=== PATIENT | male | born 1980 | race Caucasian/White ===

== ENCOUNTER 2021-10-08 16:46 | Emergency (ER) | payer BC, SELFPAY ==
--- NOTE | ~2021-10-08 | XR_ITS ---
EXAMINATION: XR TIBIA AND FIBULA, RIGHT CLINICAL INFORMATION: Cellulitis. Rule out subcutaneous air. COMPARISON: None TECHNIQUE: AP and lateral views of the right tibia and fibula were obtained. FINDINGS: There is significant soft tissue thickening throughout the included right lower extremity but with no obvious subcutaneous air. No acute fracture or malalignment. Multifocal degenerative osteoarthritis. Spurs in the calcaneus noted. XR/XR tibia fibula RT 2V IMPRESSION: Significant soft tissue thickening but no discrete subcutaneous air. If a gangrenous infection is suspected, correlation with cross-sectional imaging could be obtained if clinically deemed appropriate.
--- NOTE | ~2021-10-08 | US_ITS ---
EXAMINATION: US VENOUS ULTRASOUND WITH DOPPLER LOWER EXTREMITY, RIGHT CLINICAL INFORMATION: COMPARISON: None TECHNIQUE: Ultrasound of the deep veins is performed from the hip to the calf with compression sonography and color and pulse Doppler assessment. Spectral analysis with color-flow imaging is performed. FINDINGS: There is normal venous compression and respiratory variation and augmented flow. The visualized common femoral vein, superficial femoral vein, profunda femoral vein, popliteal vein, and the trifurcation region shows no evidence of deep venous thrombosis. There is no significant popliteal fossa cyst. If the patient's symptoms persist, followup ultrasound in 5 days 7 days might be of value to exclude proximal propagation from a non-visualized calf vein. US/US venous duplex LE RT IMPRESSION: No DVT demonstrated in the right lower extremity.
[2021-10-08 19:13] VITALS: BP 177/74; PULSE 89; RESP 22; TEMP 36.6; O2SAT 97; BMI 64.1
[2021-10-08 20:01] LABS: Basophils Percent Auto 0.2 % (0-2); Imm Gran Pct Auto 1.5 % (0.0-0.4); MANUAL DIFF FLAG SCAN; Mean Corpuscular HGB Conc 34.2 g/dl (31.0-36.0); Mean Corpuscular Hemoglobin 29.9 pg (27.0-33.0); PLT CLUMP 1; SCAN SMEAR FLAG 1
[2021-10-08 20:02] LABS: Eosinophils Percent Auto 0.1 % (0-4); Hematocrit 42.1 % (42.0-52.0); Hemoglobin 14.4 g/dl (14.0-18.0); Imm Gran Abs Auto 0.37 X10*3/uL (0.00-0.03); Lymphocytes Absolute Auto 1.4 X10*3/uL (1.2-4.9); Lymphocytes Percent Auto 5.7 % (20-40); Mean Corpuscular Volume 87.3 fL (80.0-98.0); Mean Platelet Volume 10.8 fL (9.4-12.4); Monocytes Absolute Auto 1.3 X10*3/uL (0.1-1.2); Monocytes Percent Auto 5.1 % (2-11); Neutrophils Absolute Auto 21.6 x10*3/uL (2.0-8.3); Neutrophils Percent Auto 87.4 % (45-73); Red Blood Count 4.82 X10*6/uL (4.60-5.80)
[2021-10-08 20:16] LABS: D Dimer High Sensitivity 203 NG/ML
[2021-10-08 20:21] LABS: Alanine Aminotransferase 28 U/L (0-40); Albumin Level 4.1 g/dL (3.5-5.0); Alkaline Phosphatase 77 U/L (39-117); Anion Gap 18 (12-20); Aspartate Amino Transferase 20 U/L (5-37); Bilirubin Total 1.2 mg/dL (0.0-1.0); Blood Urea Nitrogen 14 mg/dL (9-16); Calcium 8.8 mg/dL (8.4-10.2); Carbon Dioxide 23 mmol/L (22-29); Chloride 101 mmol/L (96-108); Creatinine Clr Calc Pharmacy 196.7; Estimated Glomerular Filt Rate > 60; Glucose Random 118 mg/dL (60-115); Potassium 4.4 mmol/L (3.3-5.1); Sodium 138 mmol/L (135-145); Total Protein 7.4 g/dL (6.5-8.0)
[2021-10-08 20:24] LABS: Platelet Count 209 X10*3/uL (160-400); White Blood Count 24.7 X10*3/uL (4.8-10.8)
[2021-10-08 20:25] LABS: SLIDE REVIEW VERIFIED
--- NOTE | 2021-10-08 21:34 | ED.LOWEXIN ---
HPI - Extremity Injury (Lower) General Chief Complaint: Extremity Injury, Lower Stated Complaint: ? blood clot in leg Time Seen by Provider: 10/08/21 21:33 Source: patient Mode of arrival: ambulatory Limitations: no limitations History of Present Illness HPI Narrative: 41-year-old male sent from PCP office for evaluation of her right lower extremities pain. Stated that 2 days ago he slipped in the wrong way twisting his right ankle woke up with throbbing pain in the right leg with fever and chills, declined any insect bite, patient is able to ambulate with limping. Declined any recent travel or any recent prolonged immobilization. Related Data Previous Rx's Medication Instructions Recorded cephalexin 500 mg capsule 500 mg PO Q12H 10 days #20 caps 10/08/21 sulfamethoxazole 800 1 tab PO Q12H #20 tabs 10/08/21 mg-trimethoprim 160 mg tablet (Bactrim DS) Allergies Allergy/AdvReac Type Severity Reaction Status Date / Time No Known Allergies Allergy Verified 10/08/21 19:17 Review of Systems Review of Systems: All other systems are reviewed and are negative Constitutional: Reports as per HPI and Reports no additional constitutional complaints Eyes: Reports as per HPI and Reports no additional eye complaints Reports system reviewed and no additional complaints, except as documented Cardiovascular: Reports as per HPI and Reports no additional cardiovascular complaints Respiratory: Reports as per HPI and Reports no additional respiratory complaints Gastrointestinal: Reports as per HPI and Reports no additional gastrointestinal complaints Genitourinary: Reports no additional female genitourinary complaints Musculoskeletal: Reports no additional musculoskeletal complaints Skin/Breast: Reports system reviewed and no additional complaints, except as docu Psychiatric: Reports no additional psychiatric complaints Endocrine: Reports no additional endocrine complaints Hematologic/Lymphatic: Reports no additional hematologic/lymphatic complaints Allergic/Immunologic: Reports no additional allergic/immunologic complaints Reports system reviewed and no additional complaints, except as documented and Reports Abnormal speech present [facility] Social History Social History Advance Directives: No Advance Directives Information Provided: Yes Physical Exam Vital Signs: Vital Signs: Last Vital Signs Temp 97.8 F 10/08/21 19:13 Pulse 89 10/08/21 19:13 Resp 22 H 10/08/21 19:13 BP 177/74 H 10/08/21 19:13 Pulse Ox 97 10/08/21 19:13 O2 Del Method 10/08/21 19:13 BMI result Body Mass Index 64.1 Vital signs have been reviewed as appeared to be correct. Blood pressure normal. Heart rate normal. Respiration rate normal. Temperature normal. Oxygen saturation normal. Appearance: Alert. Oriented X3. No acute distress. Head: Normal external exam. Normocephalic. Atraumatic. No Harris signs noted. No raccoon eyes noted Eyes: PERRLA. EOMI. Conjunctiva and sclera normal. Eyelids normal. ENT: TM's Normal. Pharynx normal. Uvula midline. Moist mucous membranes. No trismus noted. No drooling noted. No muffled voice noted. Neck: Normal inspection. Neck supple. FROM. No adenopathy. Thyroid Normal. No meningeal signs. No neck mass noted. CVS: Normal heart rate and rhythm. Heart sound normal. No murmurs noted. Pulses normal throughout. Respiratory: No respiratory distress. Painless inspiration. Breath sounds normal. No wheezes/rales/rhonchi noted. Chest nontender. No accessory muscle usage noted or decreased air movement noted. Abdomen: Soft and nontender. Bowel sounds normal in all 4 quadrants. No distention noted. No organomegaly noted. No visible injury noted. Back: No CVA tenderness. Full range of motion noted. Skin: Skin warm and dry. Normal skin color. Normal skin turgor. No rashes/lesions/lacerations noted. Extremities: 15x 8 cm area of redness and hotness with tenderness to touch to the lower right leg, mild calf tenderness. Neuro: Oriented X 3. Cranial nerve exam: II-XII are grossly intact No motor deficit. No sensory deficit. Reflexes normal. Course Course Course Narrative: 41-year-old male presented with right lower extremities uncomplicated cellulitis, patient preferred to start outpatient treatment and avoid hospitalization, patient meet SIRS criteria, patient otherwise hemodynamically stable cellulitis was delineated by a marker and patient was instructed to seek immediate medical attention if it exceeds the maguire, will start the patient on double antibiotic, patient has an appointment with PCP tomorrow. MDM - Extremity Injury (Lower) Lab Data Attestation: I reviewed the patient's lab results. Result diagrams: 10/08/21 19:49 10/08/21 19:49 Labs: Lab Results 10/08/21 10/08/2122 Range/Units 19:49 19:49 19:49 WBC 24.7 H (4.8-10.8) X10*3/uL RBC 4.82 (4.60-5.80) X10*6/uL Hgb 14.4 (14.0-18.0) g/dl Hct 42.1 (42.0-52.0) % MCV 87.3 (80.0-98.0) fL MCH 29.9 (27.0-33.0) pg MCHC 34.2 (31.0-36.0) g/dl RDW 13.0 (11.0-16.0) % Plt Count 209 (160-400) X10*3/uL MPV 10.8 (9.4-12.4) fL Immature Gran % (Auto) 1.5 H (0.0-0.4) % Neut % (Auto) 87.4 H (45-73) % Lymph % (Auto) 5.7 L (20-40) % [place] % (Auto) 5.1 (2-11) % Eos % (Auto) 0.1 (0-4) % Baso % (Auto) 0.2 (0-2) % Lymph # (Auto) 1.4 (1.2-4.9) X10*3/uL [place] # (Auto) 1.3 H (0.1-1.2) X10*3/uL Eos # (Auto) 0.0 (0.0-0.4) X10*3/uL Baso # (Auto) 0.0 (0.0-0.2) X10*3/uL Abs Immat Gran (auto) 0.37 H (0.00-0.03) X10*3/uL Absolute Neuts (auto) 21.6 H (2.0-8.3) x10*3/uL Absolute Nucleated RBC 0.000 (0.0-0.012) X10*3/uL Nucleated RBC % (auto) 0.0 (0.0-0.2) /100WBC Smear Tech's Comments VERIFIED D-Dimer High Sensitivty 203 NG/ML Sodium 138 (135-145) mmol/L Potassium 4.4 (3.3-5.1) mmol/L Chloride 101 (96-108) mmol/L Carbon Dioxide 23 (22-29) mmol/L Anion Gap 18 (12-20) BUN 14 (9-16) mg/dL Creatinine 0.89 (0.5-1.4) mg/dL Estim Creat Clear Calc 196.7 Estimated GFR > 60 Random Glucose 118 H (60-115) mg/dL Calcium 8.8 (8.4-10.2) mg/dL Total Bilirubin 1.2 H (0.0-1.0) mg/dL AST 20 (5-37) U/L ALT 28 (0-40) U/L Alkaline Phosphatase 77 (39-117) U/L Total Protein 7.4 (6.5-8.0) g/dL Albumin 4.1 (3.5-5.0) g/dL Imaging Data Right lower extremities ultrasound: Attestation: I personally reviewed and interpreted this imaging study as follows: Radiologist's impression: No DVT. Right lower extremities x-ray: Attestation: I personally reviewed and interpreted this imaging study as follows: Radiologist's impression: Significant soft tissue thickening but no discrete subcutaneous air. ? If a gangrenous infection is suspected, correlation with cross-sectional imaging could be obtained if clinically deemed appropriate. ? Discharge Plan Discharge Clinical Impression: Cellulitis of leg, right Patient Disposition: Home, Self-Care Instructions: Cellulitis (ED) Additional Instructions: Take the prescribed antibiotic as instructed, keep monitoring the red area if it exceeds the delineated marker please seek immediate medical attention, apply ice to the red tender area. Prescriptions: New cephalexin 500 mg capsule 500 mg PO Q12H 10 Days Qty: 20 0RF sulfamethoxazole-trimethoprim [Bactrim DS] 800-160 mg tablet 1 tab PO Q12H Qty: 20 0RF Referrals: Kathrine Holbrook MD [Primary Care Provider] -
[2021-10-08] MEDS: Sulfamethox/Trimeth 800/160 TABLET 1 TAB PO (21:58)
[2021-10-08] MEDS: cephALEXin 500 MG CAPSULE PO (21:59)
== END 2021-10-08 23:11 | disposition home or self-care (01) ==
PROVIDERS: Emergency Provider Emergency Medicine; PCP Family Medicine
DX: L03.115 Cellulitis of right lower limb (principal); R60.0 Localized edema; Z79.899 Other long term (current) drug therapy
CPT/HCPCS: 36415; 73590; 80053; 85025; 85379; 93971; 99282; 99283

== ENCOUNTER 2024-04-23 17:15 | Emergency (ER) | payer BC, SELFPAY ==
--- NOTE | 2024-04-23 17:45 | ED_ITS ---
HPI - General Adult General Chief complaint: General Medical Stated complaint: high BP 200/106 Time Seen by Provider: 04/23/24 19:52 Source: patient and RN notes reviewed Mode of arrival: ambulatory Limitations: no limitations History of Present Illness ED Provider: Deandra Lyles PA-C [facility] narrative: This is a 39-vahe-kcs-male who presents to the ER with complaints of elevated BP. Reports he was at his bat person (he is on testosterone) to start on ozepemic, and it was found that his BP was elevated. He states that his bat person advised him to call his PCP, and his PCP advised him to come to the ED due to his BP being elevated. BP in triage is 191/93. No headache, dizziness, blurred vision, CP or SOB. Does not have a history of high blood pressure. No other complaints or concerns at this time. MD complaint: Elevated blood pressure reading Relieving factors: none Exacerbating factors: none Associated symptoms: denies other symptoms Treatments prior to arrival: none Related Data Previous Rx's ?Medication ?Instructions ?Recorded cephalexin 500 mg capsule 500 mg PO Q12H 10 days #20 caps 10/08/21 sulfamethoxazole 800 1 tab PO Q12H #20 tabs 10/08/21 mg-trimethoprim 160 mg tablet (Bactrim DS) hydrochlorothiazide 25 mg tablet 25 mg PO DAILY #30 tabs 04/23/24 Allergies Allergy/AdvReac Type Severity Reaction Status Date / Time amoxicillin AdvReac Unknown Verified 04/23/24 17:53 Review of Systems 2 Review of Systems: Yes all other systems are reviewed and are negative Constitutional: Constitutional: Reports as per [facility] Social History Social History Advance Directives: Yes Advance Directives Information Provided: Yes Advance Directives on File: No Physical Exam ED Vital Signs: Vital Signs - 24 hr 04/23/24 17:47 04/23/24 19:41 04/23/24 19:58 Temperature 98.6 F 97.8 F 97.8 F Pulse Rate 70 70 70 Respiratory Rate 20 22 H 22 H Blood Pressure 191/93 H 173/83 H 173/83 H Pulse Oximetry 98 97 97 Oxygen Delivery Method Room Air Room Air Room Air BMI result Body Mass Index 68.0 Const General: cooperative, comfortable and no acute distress Orientation/consciousness: patient oriented x3 Limitations: no limitations HENMT Head: Yes normal to inspection, Yes normocephalic and Yes atraumatic Ears: hearing grossly normal bilaterally General nose exam: Normal external nose present Face and sinus: Yes normal facial exam Mouth: Normal oral and palatal mucosa present, oropharynx normal and moist mucous membranes Throat: Yes posterior oropharynx normal Eyes General: appearance normal, both eyes and all related structures Eyelids: Yes eyelids normal Conjunctivae: conjunctivae normal Sclerae: sclerae normal Pupils: Equal, round and reactive pupils present EOM: EOMs intact bilaterally Neck Neck: Yes normal visual inspection, Yes full ROM and Yes no lymphadenopathy Lymphatic: no lymphadenopathy noted Chest Chest palpation & inspection: normal inspection of the chest Resp Effort & Inspection: normal respiratory effort and able to speak in complete sentences Auscultation: clear to auscultation bilaterally, no crackles, no rales, no rhonchi and no wheezes Cardio Rate: regular rate Rhythm: regular rhythm Heart sounds: S1 normal heart sound present and S2 normal heart sound present GI Inspection: Yes normal to inspection Skin General skin exam: no rashes or lesions noted Trauma: no lacerations or abrasions Wounds: no wounds Neuro General: patient oriented x3 and moves all extremities Cranial nerves: Yes Equal, round and reactive pupils present Extrem General: Yes normal to inspection Right upper extremity: normal to inspection Left upper extremity: normal to inspection Right lower extremity: normal to inspection Left lower extremity: normal to inspection Medical Decision Making Medical Decision Making MDM Narrative: This is a 46-aihl-lnd-male who presents to the ER with complaints of elevated BP. On arrival, patient speaking full sentences under no acute distress. Blood pressure 191/93, all other vital signs within normal limits. He has no chest pain, shortness for breath, blurred vision, double vision. Will obtain basic labs to rule out any evidence of THU. Differential diagnoses include hypertensive urgency, hypertensive crisis-unlikely, electrolyte derangement, THU, CKD. He has no chest pain or shortness for breath. He has no changes in his vision. Labs were obtained, he has no leukocytosis, he has a normocytic anemia noted with an H&H of 13.8/40.9, chemistry with no significant electrolyte derangement, random glucose 128. Repeat blood pressure 173/83. Again he is asymptomatic. Discussed with my attending physician, Dr. Durham, recommending starting on hydrochlorothiazide. Educated the importance of taking this as prescribed and to follow-up with his primary care physician. He understands agrees with plan. Patient stable for discharge. Differential Diagnosis Differential Diagnoses: The differential diagnosis associated with the presentation includes See above Lab Data [facility] Lab Attestation statement: I reviewed the patient's lab results. See MDM 04/23/24 17:52 04/23/24 17:52 Labs: Lab Results 04/23/24 Range/Units 17:52 WBC 7.9 (4.8-10.8) X10*3/uL RBC 4.65 (4.60-5.80) X10*6/uL Hgb 13.8 L (14.0-18.0) g/dl Hct 40.9 L (42.0-52.0) % MCV 88.0 (80.0-98.0) fL MCH 29.7 (27.0-33.0) pg MCHC 33.7 (31.0-36.0) g/dl RDW 13.6 (11.0-16.0) % Plt Count 287 D (160-400) X10*3/uL MPV 10.3 (9.4-12.4) fL Immature Gran % (Auto) 0.4 (0.0-0.4) % Neut % (Auto) 59.1 (45-73) % Lymph % (Auto) 29.4 (20-40) % [place] % (Auto) 9.4 (2-11) % Eos % (Auto) 1.4 (0-4) % Baso % (Auto) 0.3 (0-2) % Lymph # (Auto) 2.3 (1.2-4.9) X10*3/uL [place] # (Auto) 0.7 (0.1-1.2) X10*3/uL Eos # (Auto) 0.1 (0.0-0.4) X10*3/uL Baso # (Auto) 0.0 (0.0-0.2) X10*3/uL Abs Immat Gran (auto) 0.03 (0.00-0.03) X10*3/uL Absolute Neuts (auto) 4.7 (2.0-8.3) x10*3/uL Absolute Nucleated RBC 0.000 (0.0-0.012) X10*3/uL Nucleated RBC % (auto) 0.0 (0.0-0.2) /100WBC Sodium 142 (135-145) mmol/L Potassium 3.8 (3.3-5.1) mmol/L Chloride 107 (96-108) mmol/L Carbon Dioxide 26 (22-29) mmol/L Anion Gap 13 (12-20) BUN 11 (9-16) mg/dL Creatinine 0.75 (0.5-1.4) mg/dL Estim Creat Clear Calc 244.6 Estimated GFR > 60 Random Glucose 128 H (60-115) mg/dL Calcium 8.5 (8.4-10.2) mg/dL Total Bilirubin 0.3 (0.0-1.0) mg/dL Direct Bilirubin 0.1 (0.0-0.5) mg/dL AST 23 (5-37) U/L ALT 35 (0-40) U/L Alkaline Phosphatase 92 (39-117) U/L Total Protein 7.4 (6.5-8.0) g/dL Albumin 3.9 (3.5-5.0) g/dL Discharge Plan Discharge Clinical Impression: Elevated blood pressure reading, Hypertension Patient Disposition: Home, Self-Care Instructions: Heart Healthy Diet (ED), DASH Eating Plan (ED), Hypertension (ED) Additional Instructions: You were seen in the emergency department due to elevated blood pressure reading. Your 1st initial blood pressure reading was 191/93, you repeat was 173/83. We are starting you on a blood pressure medication called hydrochlorothiazide, this is a diuretic medication that is typically well tolerated. I am recommending that you keep a log of your blood pressure readings. Please follow-up with your primary care physician. If any new or worsening symptoms occur including but not limited to severe chest pain, shortness of breath, blurred vision, please seek emergent care Prescriptions: New hydrochlorothiazide 25 mg tablet 25 mg PO DAILY Qty: 30 0RF No Action cephalexin 500 mg capsule 500 mg PO Q12H 10 Days Qty: 20 0RF sulfamethoxazole-trimethoprim [Bactrim DS] 800-160 mg tablet 1 tab PO Q12H Qty: 20 0RF Interventions: ED Discharge Assessment Last Done: 04/23/24 19:58 Discharge Date/Time: 04/23/24 20:01 Print Language: Lithuanian
[2024-04-23 17:47] VITALS: BP 191/93; PULSE 70; RESP 20; TEMP 37; O2SAT 98; BMI 68.0
[2024-04-23 18:14] LABS: MANUAL DIFF FLAG NO
[2024-04-23 18:22] LABS: Basophils Percent Auto 0.3 % (0-2); Eosinophils Absolute Auto 0.1 X10*3/uL (0.0-0.4); Eosinophils Percent Auto 1.4 % (0-4); Hematocrit 40.9 % (42.0-52.0); Hemoglobin 13.8 g/dl (14.0-18.0); Imm Gran Abs Auto 0.03 X10*3/uL (0.00-0.03); Imm Gran Pct Auto 0.4 % (0.0-0.4); Lymphocytes Absolute Auto 2.3 X10*3/uL (1.2-4.9); Lymphocytes Percent Auto 29.4 % (20-40); Mean Corpuscular HGB Conc 33.7 g/dl (31.0-36.0); Mean Corpuscular Hemoglobin 29.7 pg (27.0-33.0); Mean Platelet Volume 10.3 fL (9.4-12.4); Monocytes Absolute Auto 0.7 X10*3/uL (0.1-1.2); Monocytes Percent Auto 9.4 % (2-11); Neutrophils Absolute Auto 4.7 x10*3/uL (2.0-8.3); Neutrophils Percent Auto 59.1 % (45-73); Platelet Count 287 X10*3/uL (160-400); Red Blood Count 4.65 X10*6/uL (4.60-5.80); Red Cell Distribution Width 13.6 % (11.0-16.0); White Blood Count 7.9 X10*3/uL (4.8-10.8)
[2024-04-23 18:31] LABS: Alanine Aminotransferase 35 U/L (0-40); Albumin Level 3.9 g/dL (3.5-5.0); Alkaline Phosphatase 92 U/L (39-117); Anion Gap 13 (12-20); Aspartate Amino Transferase 23 U/L (5-37); Bilirubin Direct 0.1 mg/dL (0.0-0.5); Bilirubin Total 0.3 mg/dL (0.0-1.0); Blood Urea Nitrogen 11 mg/dL (9-16); Calcium 8.5 mg/dL (8.4-10.2); Carbon Dioxide 26 mmol/L (22-29); Chloride 107 mmol/L (96-108); Creatinine Clr Calc Pharmacy 244.6; Estimated Glomerular Filt Rate > 60; Glucose Random 128 mg/dL (60-115); Potassium 3.8 mmol/L (3.3-5.1); Sodium 142 mmol/L (135-145); Total Protein 7.4 g/dL (6.5-8.0)
[2024-04-23 19:41] VITALS: BP 173/83; PULSE 70; RESP 22; TEMP 36.6; O2SAT 97
--- OUTSIDE RECORDS SUMMARY | 2024-04-23 19:53 | XMS_ITS | Continuity of Care Document ---
Author Organization [facility] [place], [place] Address [address] [place] [address] Assessment Encounter Date Assessment Date Assessment LastModified by Organization Details LastModified Time 04/20/2024 04/20/2024 This patient wit h a history of OUD presents today for their monthly MAT visit Current prescription is: buprenorphine/nal oxone 12mg films Patient denies any S/E, cravings, or withdrawal sx at current dose Update Since Last Visit : (narrative note) Patient Denies all illicit drug use since last visit HX OUD PRESENTS TO OFFICE FOR MONTHLY F/U. PRIOR TRANSFER FROM [facility]. ACTIVE WITH [facility] SINCE 05/03/22. CURRENTLY ON 12MG BUPRENORPHINE/NAL OXONE DAILY. TOLERATING WELL. HAD DOSE FOR TODAY. HAS DOSE FOR TOMORROW OPIATE DEPENDENCE DENIES CRAVINGS/RELAPSE ON OPIATES PT HAS IRIS AND HAS BEEN TRAINED IN ADMINISTRATION THROUGH [facility]. DOES NOT NEED REFILL DENIES HX OPIATE OVERDOSE NICOTINE DEPENDENCE: VAPING 6MG NICOTINE FIVE TIMES DAILY. REQUESTING NICOTINE GUM THC: USING LESS THAN NORMAL. GETTING FROM DISPENSARY PLAN: MONTHLY APPOINTMENTS -- HAS OVER 6 MOS SOBRIETY, COMPLIANT W/ VISITS UDT ORDERED TODAY FOR EVALUATION OF ILLICIT DRUG USE/RELAPSE MEDICAL: LFTS: 02/09/22 WNL -- PT REFUSES ADDITIONAL LABWORK HIV/RPR/HCV: 06/29/20 NR -- Current medical concerns: ANXIETY/DEPRESSIO N: FOLLOWED BY PCP. RXED SERTRALINE. NOT ATTENDING COUNSELING, STATES FEELING STABLE. DENIES SI/HI -- PCP Name: [facility] SOCIAL: -- Housing Stability/Safety: RENTING APARTMENT IN [place]. LOOKING TO BUY WITH GIRLFRIEND -- Family: HAS 1 SON, 23YO. 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 DENIES ANY PENDING LEGAL ISSUES, PROBATION/PAROLE -- Counseling: NOT INTERESTED LAB RESULTS Last UDS result (qualitative screen): POS buprenorphine and NO illicit drugs Last confirmatory test result (LCMS/quantitativ e): N/A due to negative UDS Last Bup confirmation was performed on 01/13/2024 with the result: Bup: 73 ng/ml & Norbup: 101 ng/ml Last LFT result: see ABOVE ASSESSMENT The patient's current phase of OUD treatment is: Stable maintenance. Interpretation of last buprenorphine confirmation test result: No concern Medication dose: No report of severe or persistent cravings/withdraw al symptoms. Pt will remain at current dose PLAN (narrative, if applicable) Rx : Continue Suboxone 12mg films daily Rx Quantity 28d Rx provided today. VISIT FREQUENCY Continue monthly visits and UDS. Treatment plan review or change includes continue current level of care LFTS will be repeated per our clinical protocol. Prescription monitoring program is reviewed. If applicable, I have identified agents prescribed to the patient in addition to any issued by our program. The patient has been counseled regarding any risk of combining sedating agents. [email or web address] Not available 04/20/2024 16:01:36 Plan of Treatment Reminders Order Date Submit Date Provider Last Modified By Organization Details Last Modified Time Details Appointments MAT - Monthly 15 2024 04:45P Cesilia Nguyen NP Not available Not available Not available Lab drug screen, urine 2024 025 [facility], [address] [place], [id number], 04/21/2024 14:04:24 ethanol, QL, screen, urine 2024 025 [facility], [address] [place], [address], 04/21/2024 14:04:22 additiona l order codes 2024 025 [facility] [address] [place], [address], 04/20/2024 16:03:33 additiona l order codes 2024 [facility], [address] [place], [address], 04/20/2024 16:03:32 additiona l order codes 2024 025 [facility], [address] [place], [address], 04/20/2024 16:03:29 additiona l order codes 2024 025 [facility], [address] [place], [address], 04/20/2024 16:03:28 additiona l order codes 2024 025 [facility], [address] [place], [address], 04/20/2024 16:03:31 additiona l order codes 2024 [facility], [address] [place], [address], 04/20/2024 16:03:30 additiona l order codes 2024 [facility], [address] [place], [address], 04/20/2024 16:03:26 Referral None recorded. Procedures None recorded. Surgeries None recorded. Imaging None recorded. Medication Orders nicotine (polacril ex) 4 mg gum 2024 [facility] #[id number], [address] [place], [address], 04/20/2024 16:03:26 buprenorp mark 12 mg-naloxo ne 3 mg sublingua l film 2024 [facility] #[id number], [address] [place], [address], 04/20/2024 16:03:27 Patient TargetsNo targets recorded. Patient InstructionsNo instructions recorded. Reason for Referral None Reported. Problems Name Problem SNOMED Code Status Onset Date Resolution Date Notes Provider Name and Address Organization Details Recorded Time Opioid dependence 50491469 Active Mary Palaciosa,SEWING TRIMMER [address] [facility] [place], [address], [facility] 13:18:52 Nicotine dependence 17680701 Active Mary Philipa,SEWING TRIMMER [address] [facility] [place], [address], [facility] 13:19:04 Depressive disorder 59079125 Active Mary Palaciosa,SEWING TRIMMER [address] [place] [address], [place], [address], [facility] 13:19:15 Anxiety 43533447 Active Mary Palaciosdebbie,SEWING TRIMMER [address] [place] [address], [place], [address], [facility] 13:19:20 Problem Notes None recorded. Procedures Surgical History Date Name Laterality Status Provider Name and Address Organization Details Recorded Time 04/20/2024 78221, G0480, G0481 completed Dulce [facility] 04/20/2024 15:52:52 03/11/2024 39777, G0480, G0481 completed Dulce [facility] 03/11/2024 16:44:56 02/10/2024 52299, G0480, G0481 completed Dulce [facility] 02/10/2024 16:46:25 01/13/2024 20333, G0480, G0481 completed Heydi Napier [facility] 01/13/2024 16:40:29 12/19/2023 63103, G0480, G0481 completed Ny Ventura [facility] 12/19/2023 16:28:32 11/21/2023 95429, G0480, G0481 completed Kay Gerber [facility] 11/21/2023 15:51:34 10/17/2023 88084, G0480, G0481 completed Marisol [facility] 10/17/2023 16:49:41 09/18/2023 94046, G0480, G0481 completed Kay Gerber [place] [facility] 09/18/2023 16:10:03 08/15/2023 [id number], G0480, G0481 completed Marisol Crook [facility] 08/15/2023 10:50:46 07/18/2023 39065, G0480, G0481 completed Mary NguyenSEWING TRIMMER [address] [place], [address], [facility] 07/18/2023 16:37:57 06/19/2023 74934, G0480, G0481 completed Kay Gerber [facility] 06/19/2023 16:10:12 05/16/2023 45662, G0480, G0481 completed Marisol Crook [facility] 05/16/2023 16:47:24 04/18/2023 17412, G0480, G0481 completed Kay Gerber [facility] 04/18/2023 16:47:43 03/21/2023 95723, G0480, G0481 completed Mary NguyenSEWING TRIMMER [address] [place], [address], [facility] 03/21/2023 16:47:58 02/14/2023 74455, G0480, G0481 completed Kay Gerber [facility] 02/14/2023 16:23:10 01/17/2023 62864, G0480, G0481 completed Kay Gerber [place] [facility] 01/17/2023 16:46:18 12/13/2022 [id number], G0480, G0481 completed Kay Gerber [place] [facility] 12/13/2022 16:46:05 11/08/2022 32641, G0480, G0481 completed Kay Gerber [place] [facility] 11/08/2022 16:35:53 10/11/2022 38115, G0480, G0481 completed Kay Gerber [place] [facility] 10/11/2022 16:34:54 09/27/2022 90829, G0480, G0481 completed Mary Philipa,SEWING TRIMMER [address] [place], [address], [facility] 09/27/2022 11:49:43 09/13/2022 05148, G0480, G0481 [facility] 09/13/2022 16:16:39 08/30/2022 02626, G0480, G0481 completed Mary Samanthaaza,SEWING TRIMMER [address] [place], [address], [facility] 08/30/2022 14:30:47 08/16/2022 62441, G0480, G0481 completed Mary Philipa,SEWING TRIMMER [address] [place], [address], [facility] 08/09/2022 08:59:08 07/26/2022 50448, G0480, G0481 completed Mary Philipa,SEWING TRIMMER [address] [place] [address], [address], [facility] 07/26/2022 13:58:55 07/12/2022 [id number], G0480, G0481 completed Mary Philipa,SEWING TRIMMER [address] [place] [address], [address], [facility] 07/12/2022 14:34:12 06/29/2022 61045, G0480, G0481 completed HARI Robbins [address] [place] [address], [address], [facility] 06/29/2022 14:36:36 06/13/2022 09432, G0480, G0481 completed Mary Philipa,SEWING TRIMMER [address] [place] [address], [address], [facility] 06/13/2022 11:24:06 05/30/2022 85422, G0480, G0481 completed Mary Philipa,SEWING TRIMMER [address] [place] [address], [address], [facility] 05/28/2022 14:44:57 05/24/2022 55624, G0480, G0481 completed Mary Nguyen NP [address] [place], [address], [facility] [email or web address] [facility] 05/21/2022 15:26:18 05/10/2022 62190, G0480, G0481 completed Mary Nguyen NP [address] [place], [address], [facility] [email or web address] [facility] 05/10/2022 13:16:58 05/03/2022 [id number], G0480, G0481 completed Hansa Amaya PA-C [address] [place], [address], [facility] [email or web address] [facility] 05/03/2022 16:26:52 Imaging Results None recorded. Procedure Notes None recorded. Medical Equipment None Reported. Allergies No known drug allergies Medications Name Sig Start Date Stop Date Status Note LastModified by Organization Details LastModified Time sertraline 100 mg tablet Take 1 tablet every day by oral route. active Not Available Not Available No t Available nicotine (polacrilex) 4 mg gum Chew 1 piece of gum every 2 hours by oral route. 2024 active Not Available Not Available Not Avai lable buprenorphin e 12 mg-naloxone [address] 1 film every day by sublingual route in the morning for 31 days. 2024 active Not Available Not Available Not Avai lable Narcan 4 mg/actuation nasal spray Take 1 spray by nasal route. active Not Available Not Available No t Available Vitals Date Recorded Body height Heart rate Oxygen saturation Oxygen saturation in Arterial blood by Pulse oximetry Body temperature Provider Name and Address Organization Details Last Updated DateTime 182.88 cm 81 /min 98 % 98 % 96.9 [degF] Dulce Moreira [facility] 15:56:36 Social History Question Answer Notes LastModified by Organizat ion Details LastModified Time *Housing Stable - Safe [email or web address] Information not available 05/03/2022 *Employment Employed [email or web address] Information n ot available 05/03/2022 *Food Adequate [email or web address] Information no t available 05/03/2022 *[place] Not A [email or web address] Information not available 05/03/2022 *Job Training/Educa tion/Literacy Not Needed [email or web address] Information not available 05/03/2022 *Legal Status No Legal Issues [email or web address] Information not available 05/03/2022 *Legal Assistance Not Required Information not available 05/03/2022 *Custody Of Dependent Children N/A Information not available 05/03/2022 *Social Service's Involvement With Dependent Children Not Applicable [email or web address] Information not available 05/03/2022 *Childcare Needed No [email or web address] Information not available 05/03/2022 *Concern For Domestic Violence No [email or web address] Information not available 05/03/2022 *Primary Care Provider Yes [place] [email or web address] Information not available 05/03/2022 *Other Medical Issues None [email or web address] Information not available 05/03/2022 *Social Support Network Has Stable Support System Information not available 05/03/2022 *Transportatio n Issues No Information not available 05/03/2022 Sex: Unknown Functional Status None recorded. Mental Status None recorded. Family History Nothing Reported Notes:DENIES ANY FAMILY HX O UD/AUD Medical History No medical history recorded. Past Encounters Encounter ID Performer Location Encounter Start Date Encounter Closed Date Diagnosis/Indication Diagnosis SNOMED-CT Code Diagnosis ICD10 Code Diagnosis Note [id number] [place] NP [place] [address] [place] [address] 04/20/2024 15:50:35 04/20/2024 16:09:35 Opioid dependence 93925024 F11.20 STABLE Health Concerns Section Related Observation LastModified by Organization Detai ls LastModified Time None Recorded Concern Status LastModified by Organization Details LastModified Time None Recorded Payers Encounter Date Sequence Insurance Name Policy Number Policy Whitlock Covered Member ID Whitlock Member ID Guarantor Name 04/20/2024 1 [place] [facility] [id number] Alvarado Moreno [id number] Alvarado Moreno Notes Date Note Type Note Provider Name and Address Organization Details Recorded Time 04/20/2024 text/html This patient is here today for their follow-up MAT visit. They are being treated for OUD with buprenorphine. PLEASE SEE A & P SECTION FOR FULL VISIT NOTE Mary Nguyen NP [address] [place] [address], [phone], [facility] 04/20/2024 16:03:51
--- OUTSIDE RECORDS SUMMARY | 2024-04-23 19:53 | XMS_ITS | Data Portability ---
Author Organization [place] [facility] Address [address] [place] [address] Assessment Encounter Date Assessment Date Assessment LastModified by Organization Details LastModified Time 12/19/2023 12/19/2023 This patient wit h a history of OUD presents today for their monthly MAT visit Current prescription is: buprenorphine/nal oxone 12mg films Patient denies any S/E, cravings, or withdrawal sx at current dose Update Since Last Visit : (narrative note) Patient Denies all illicit drug use since last visit HX OUD PRESENTS TO OFFICE FOR MONTHLY F/U. PRIOR TRANSFER FROM [facility]. ACTIVE WITH [facility] SINCE 05/03/22. CURRENTLY ON 12MG BUPRENORPHINE/NAL OXONE DAILY. TOLERATING WELL. HAD DOSE FOR TODAY. NO FILMS REMAINING OPIATE DEPENDENCE DENIES CRAVINGS/RELAPSE ON OPIATES PT HAS NARCBARI AND HAS BEEN TRAINED IN ADMINISTRATION THROUGH [facility]. DOES NOT NEED REFILL DENIES HX OPIATE OVERDOSE NICOTINE DEPENDENCE: VAPING 6MG NICOTINE FIVE TIMES DAILY. DENIES NRT AT THIS TIME THC: USING LESS THAN NORMAL. GETTING FROM DISPENSARY PLAN: MONTHLY APPOINTMENTS -- HAS OVER 6 MOS SOBRIETY, COMPLIANT W/ VISITS UDT ORDERED TODAY FOR EVALUATION OF ILLICIT DRUG USE/RELAPSE MEDICAL: LFTS: 02/09/22 WNL HIV/RPR/HCV: 06/29/20 NR -- Current medical concerns: ANXIETY/DEPRESSIO N: FOLLOWED BY PCP. RXED SERTRALINE. NOT ATTENDING COUNSELING, STATES FEELING STABLE. DENIES SI/SA -- PCP Name: [facility] [address] - STATES HAD APPOINTMENT RECENTLY AND NO MED CHANGES PSYCHO SOCIAL: -- Housing Stability/Safety: RENTING APARTMENT IN [place]. LIVES WITH SON. FEELS SAFE AT HOME -- Family: HAS 1 SON, 22YO. 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 DENIES ANY PENDING LEGAL ISSUES, PROBATION/PAROLE -- Counseling: NOT INTERESTED LAB RESULTS Last UDS result (qualitative screen): POS buprenorphine and NO illicit drugs Last confirmatory test result (LCMS/quantitativ e): N/A due to negative UDS Last Bup confirmation was performed on 07/18/2023 with the result: Bup: 73 ng/ml & Norbup: 94 ng/ml Last LFT result: WNL ASSESSMENT The patient's current phase of OUD [...] of combining sedating agents. [email or web address] Not available 12/19/2023 16:39:45 01/13/2024 01/13/2024 This patient with a history of OUD presents today for their monthly MAT visit Current prescription is: buprenorphine/nal oxone 12MG/3MGmg 1 films Patient denies any S/E, cravings, or withdrawal sx at current dose Update Since Last Visit : (narrative note) Patient Denies all illicit drug use since last visit HX OUD PRESENTS TO OFFICE FOR MONTHLY F/U. PRIOR TRANSFER FROM [facility]. ACTIVE WITH [facility] SINCE 05/03/22. CURRENTLY ON 12MG/3MG BUPRENORPHINE/NAL OXONE DAILY. TOOK: FULL DOSE TODAY REMAINING FILMS: 0 DENIES CRAVINGS/RELAPSE ON OPIATES NARCAN: DECLINED RX. NOT AT RISK FOR RELAPSE. DENIES HX OPIATE OVERDOSE 12/19/23 UDS POS FOR BUP AND NEG FOR ILLICIT SUBSTANCES, REVIEWED W/PT TODAY. ETOH USE: DENIES ANY USE COCAINE USE: DENIES ANY USE BZO/AMPHE USE: DENIES ANY USE. CANNABIS USE: DENIES ANY USE. NICOTINE DEPENDENCE: VAPING 6MG NICOTINE FIVE TIMES DAILY. DENIES NRT AT THIS TIME OUD: ON BNX 12MG/3 MG DAILY AND WILL C/W THIS DOSING. PLAN: -VISITS: MONTHLY VISITS FOR RELAPSE PREVENTION AND STABILITY. -UDS ORDERED TODAY TO MONITOR FOR ILLICIT SUBSTANCE USE/RELAPSE AND HARM REDUCTION. -DEFINITIVE CONFIRMATION TESTING ORDERED NEEDED. OD/Diversion Prevention: -Discussed risks of OD/ with any relapses or excessive ETOH use. -DECLINED NARCAN. -Will continue to monitor [place], UDS and BUP for relapse/progress and for harm reduction Cannabis dependence:discus sed the risk for cross contamination to deadly substances; if cannabis not obtained from a regulated dispensary. Nicotine Dependence: -Discussed risk of smoking to health and lungS INCLUDING OH/CAD/COPD, CANCER AND . -offered NRT treatment. LOW TESTOSTERONE: ON PRESCRIBED TESTOSTERONE GEL PUMP PRESCRIBED BY EXTERNAL PROVIDER. MEDICAL: LFTS: 02/09/22 WNL HIV/RPR/HCV: 06/29/20 NR DUE FOR FULL LABS AT NEXT APPT. -- Current medical concerns: ANXIETY/DEPRESSIO N: FOLLOWED BY PCP. RXED SERTRALINE. NOT ATTENDING COUNSELING, STATES FEELING STABLE. DENIES SI/SA -- PCP Name: [facility] PSYCHO SOCIAL: -- Housing Stability/Safety: RENTING APARTMENT IN [place]. LIVES WITH SON. FEELS SAFE AT HOME -- Family: HAS 1 SON, 22YO. 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 DENIES ANY PENDING LEGAL ISSUES, PROBATION/PAROLE -- Counseling: NOT INTERESTED LAB RESULTS Last UDS result (qualitative screen): POS buprenorphine and NO illicit drugs Last confirmatory test result (LCMS/quantitativ e): N/A due to negative UDS Last Bup confirmation was performed on 07/18/2023 with the result: Bup: 73 ng/ml & Norbup: 94 ng/ml Last LFT result: WNL ASSESSMENT The patient's current phase of OUD [...] regarding any risk of combining sedating agents. [email or web address] Not available 01/13/2024 16:57:27 02/10/2024 02/10/2024 This patient wit h a history of OUD presents today for their monthly MAT visit Current prescription is: buprenorphine/nal oxone 12mg films Patient denies any S/E, cravings, or withdrawal sx at current dose Update Since Last Visit : (narrative note) Patient Denies all illicit drug use since last visit HX OUD PRESENTS TO OFFICE FOR MONTHLY F/U. PRIOR TRANSFER FROM [facility]. ACTIVE WITH [facility] SINCE 05/03/22. CURRENTLY ON 12MG BUPRENORPHINE/NAL OXONE DAILY. TOLERATING WELL. HAD DOSE FOR TODAY. NO FILMS REMAINING OPIATE DEPENDENCE DENIES CRAVINGS/RELAPSE ON OPIATES PT HAS NARCAN AND HAS BEEN TRAINED IN ADMINISTRATION THROUGH [facility]. DOES NOT NEED REFILL DENIES HX OPIATE OVERDOSE NICOTINE DEPENDENCE: VAPING 6MG NICOTINE FIVE TIMES DAILY. DENIES NRT AT THIS TIME THC: USING LESS THAN NORMAL. GETTING FROM DISPENSARY PLAN: MONTHLY APPOINTMENTS -- HAS OVER 6 MOS SOBRIETY, COMPLIANT W/ VISITS UDT ORDERED TODAY FOR EVALUATION OF ILLICIT DRUG USE/RELAPSE MEDICAL: LFTS: 02/09/22 WNL HIV/RPR/HCV: 06/29/20 NR -- Current medical concerns: ANXIETY/DEPRESSIO N: FOLLOWED BY PCP. RXED SERTRALINE. NOT ATTENDING COUNSELING, STATES FEELING STABLE. DENIES SI/SA -- PCP Name: [facility] [address] - STATES HAD APPOINTMENT RECENTLY AND NO MED CHANGES PSYCHO SOCIAL: -- Housing Stability/Safety: RENTING APARTMENT IN [place]. LIVES WITH SON. FEELS SAFE AT HOME -- Family: HAS 1 SON, 22YO. 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 DENIES ANY PENDING LEGAL ISSUES, PROBATION/PAROLE -- Counseling: NOT INTERESTED LAB RESULTS Last UDS result (qualitative screen): POS buprenorphine and NO illicit drugs Last confirmatory test result (LCMS/quantitativ e): N/A due to negative UDS Last Bup confirmation was performed on 01/13/2024 with the result: Bup: 73 ng/ml & Norbup: 101 ng/ml Last LFT result: WNL ASSESSMENT The patient's current phase of OUD [...] of combining sedating agents. [email or web address] Not available 02/10/2024 16:59:07 03/11/2024 03/11/2024 This patient wit h a history of OUD presents today for their monthly MAT visit Current prescription is: buprenorphine/nal oxone 12mg films Patient denies any S/E, cravings, or withdrawal sx at current dose Update Since Last Visit : (narrative note) Patient Denies all illicit drug use since last visit HX OUD PRESENTS TO OFFICE FOR MONTHLY F/U. PRIOR TRANSFER FROM [facility]. ACTIVE WITH [facility] SINCE 05/03/22. CURRENTLY ON 12MG BUPRENORPHINE/NAL OXONE DAILY. TOLERATING WELL. HAD DOSE FOR TODAY. HAS DOSE FOR TOMORROW STATES HAD A GREAT HOLIDAY OPIATE DEPENDENCE DENIES CRAVINGS/RELAPSE ON OPIATES PT HAS IRIS AND HAS BEEN TRAINED IN ADMINISTRATION THROUGH [facility]. DOES NOT NEED REFILL DENIES HX OPIATE OVERDOSE NICOTINE DEPENDENCE: VAPING 6MG NICOTINE FIVE TIMES DAILY. DENIES NRT AT THIS TIME THC: USING LESS THAN NORMAL. GETTING FROM DISPENSARY PLAN: MONTHLY APPOINTMENTS -- HAS OVER 6 MOS SOBRIETY, COMPLIANT W/ VISITS UDT ORDERED TODAY FOR EVALUATION OF ILLICIT DRUG USE/RELAPSE MEDICAL: LFTS: 02/09/22 WNL -- PT REFUSES ADDITIONAL LABWORK HIV/RPR/HCV: 06/29/20 NR -- Current medical concerns: ANXIETY/DEPRESSIO N: FOLLOWED BY PCP. RXED SERTRALINE. NOT ATTENDING COUNSELING, STATES FEELING STABLE. DENIES SI/HI -- PCP Name: [facility] PSYCHO SOCIAL: -- Housing Stability/Safety: RENTING APARTMENT IN [place]. LIVES WITH SON. FEELS SAFE AT HOME -- Family: HAS 1 SON, 22YO. 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 DENIES ANY PENDING LEGAL ISSUES, PROBATION/PAROLE -- Counseling: NOT INTERESTED LAB RESULTS Last UDS result (qualitative screen): POS buprenorphine and NO illicit drugs Last confirmatory test result (LCMS/quantitativ e): N/A due to negative UDS Last Bup confirmation was performed on 01/13/2024 with the result: Bup: 73 ng/ml & Norbup: 101 ng/ml Last LFT result: PENDING ASSESSMENT The patient's current phase of OUD [...] regarding any risk of combining sedating agents. [email or web address] Not available 03/11/2024 16:52:37 04/20/2024 04/20/2024 This patient wit h a history of OUD presents today for their monthly MAT visit Current prescription is: buprenorphine/nal oxone 12mg films Patient denies any S/E, cravings, or withdrawal sx at current dose Update Since Last Visit : (narrative note) Patient Denies all illicit drug use since last visit HX OUD PRESENTS TO OFFICE FOR MONTHLY F/U. PRIOR TRANSFER FROM [facility]. ACTIVE WITH [facility] SINCE 05/03/22. CURRENTLY ON 12MG BUPRENORPHINE/NAL OXONE DAILY. TOLERATING WELL. HAD DOSE FOR TODAY. HAS DOSE FOR TOMORROW OPIATE DEPENDENCE DENIES CRAVINGS/RELAPSE ON OPIATES PT HAS NARCAN AND HAS BEEN TRAINED IN ADMINISTRATION THROUGH [facility]. DOES NOT NEED REFILL DENIES HX OPIATE [...] FEELING STABLE. DENIES SI/HI -- PCP Name: [facility] PSYCHO SOCIAL: -- Housing Stability/Safety: RENTING APARTMENT IN [place]. LOOKING TO BUY WITH GIRLFRIEND -- Family: HAS 1 SON, 23YO. 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[employer] -- Transportation: HAS OWN TRANSPORTATION -- [...] available Lab drug screen, urine 2024 025 [facility], [address] [place], [id number], 04/21/2024 14:04:24 ethanol, QL, screen, urine 2024 025 [facility], [address] [place], [address], 04/21/2024 14:04:22 additiona l order codes 2024 025 [facility], [address] [place], [id number], 04/20/2024 16:03:33 additiona l order codes 2024 025 [facility], [address] [place], [id number], 04/20/2024 16:03:32 additiona l order codes 2024 025 [facility], [address] [place], [id number], 04/20/2024 16:03:29 additiona l order codes 2024 025 [facility], [address] [place], [id number], 04/20/2024 16:03:28 additiona l order codes 2024 025 [facility], [address] [place], [address], 04/20/2024 16:03:31 additiona l order codes 2024 [facility] [address] [place], [id number], 04/20/2024 16:03:30 additiona l order codes 2024 025 [facility] [address] [place], [address], 04/20/2024 16:03:26 drug screen, urine 2024 025 [facility], [address] [place], [address], 03/13/2024 13:34:32 ethanol, QL, screen, urine 2024 025 [facility], [address] [place], [address], 03/13/2024 13:34:45 additiona l order codes 2024 025 [facility], [address] [place], [id number], 03/11/2024 16:55:17 additiona l order codes 2024 025 [facility], [address] [place], [address], 03/11/2024 16:55:13 additiona l order codes 2024 025 [facility] [address] [place], [id number], 03/11/2024 16:55:14 additiona l order codes 2024 025 [facility] [address] [place], [id number], 03/11/2024 16:55:15 additiona l order codes 2024 025 [facility] [address] [place], [address], 03/11/2024 16:55:17 additiona l order codes 2024 025 [facility] [address] [place], [address], 03/11/2024 16:55:12 additiona l order codes 2024 025 [facility] [address] [place], [address], 03/11/2024 16:55:15 drug screen, urine 2023 024 [facility], [address] [place], [address], 02/17/2024 14:04:15 ethanol, QL, screen, urine 2023 024 [facility], [address] [place], [address], 02/17/2024 14:03:15 additiona l order codes 2023 024 [facility] [address] [place], [id number], 02/10/2024 17:00:52 additiona l order codes 2023 024 [facility] [address] [place], [address], 02/10/2024 17:00:50 additiona l order codes 2023 024 [facility] [address] [place], [address], 02/10/2024 17:00:53 additiona l order codes 2023 024 [facility], [address] [place], [address], 02/10/2024 17:00:53 additiona l order codes 2023 024 [facility], [address] [place], [address], 02/10/2024 17:00:54 additiona l order codes 2023 024 [facility], [address] [place], [address], 02/10/2024 17:00:51 additiona l order codes 2023 024 [facility], [address] [place], [address], 02/10/2024 17:00:50 drug screen, urine 2023 [facility], [address] [place], [address], 01/15/2024 15:09:11 cannabino ids, QL, screen, urine 2023 024 [facility], [address] [place], [address], 01/15/2024 15:09:09 ethanol, QL, screen, urine 2023 024 [facility], [address] [place], [address], 01/15/2024 15:09:08 additiona l order codes 2023 024 [facility], [address] [place], [id number], 01/13/2024 16:53:12 additiona l order codes 2023 024 [facility], [address] [place], [id number], 01/13/2024 16:53:10 additiona l order codes 2023 [facility], [address] [place], [address], 01/13/2024 16:53:07 additiona l order codes 2023 [facility] [address] [place], [address], 01/13/2024 16:53:12 additiona l order codes 2023 [facility], [address] [place], [address], 01/13/2024 16:53:09 additiona l order codes 2023 [facility], [address] [place], [address], 01/13/2024 16:53:08 additiona l order codes 2023 [facility], [address] [place], [address], 01/13/2024 16:53:10 buprenorp mark, quantitat tee, urine 2023 [facility], [address] [place], [address], 01/21/2024 07:17:03 drug screen, urine 2023 [facility], [address] [place], [address], 12/20/2023 11:48:24 ethanol, QL, screen, urine 2023 [facility], [address] [place], [address], 12/20/2023 11:48:23 additiona l order codes 2023 [facility], [address] [place], [address], 12/19/2023 16:41:05 additiona l order codes 2023 [facility], [address] [place], [address], 12/19/2023 16:41:07 additiona l order codes 2023 [facility], [address] [place], [address], 12/19/2023 16:41:01 additiona l order codes 2023 [facility], [address] [place], [address], 12/19/2023 16:41:06 additiona l order codes 2023 [facility], [address] [place], [address], 12/19/2023 16:41:09 additiona l order codes 2023 [facility], [address] [place], [address], 12/19/2023 16:41:02 additiona l order codes 2023 [facility], [address] [place], [address], 12/19/2023 16:41:04 Referral None recorded. Procedures None recorded. Surgeries None recorded. Imaging None recorded. Medication Orders nicotine (polacril ex) 4 mg gum 2024 025 [id number], [address] [place], [address], 04/20/2024 16:03:26 buprenorp mark 12 mg-naloxo ne 3 mg sublingua l film 2024 025 [id number], [address] [place], [address], 04/20/2024 16:03:27 buprenorp mark 12 mg-naloxo ne 3 mg sublingua l film 2024 025 [id number] [address] [place], [address], 03/11/2024 16:55:14 buprenorp mark 12 mg-naloxo ne 3 mg sublingua l film 2023 024 [id number] [address] [place], [address], 02/10/2024 17:00:51 buprenorp mark 12 mg-naloxo ne 3 mg sublingua l film 2023 024 [id number] [address] [place], [address], 01/13/2024 16:53:05 buprenorp mark 12 mg-naloxo ne 3 mg sublingua l film 2023 024 [id number] [address] [place], [address], 12/19/2023 16:40:59 Patient TargetsNo targets recorded. Patient InstructionsNo instructions recorded. Reason for Referral None Reported. Results Created Date Observation Date Name Description Value Unit Range Abnormal Flag Note LastModifiedBy Organization Detail LastModifiedTime 11/21/1911/22/2023 BUPRE NORPH INE PT UDS, QL, U cocaine metabolite NEG NG/mL <300 normal Not Available [facility] [address] [place], [address], 11/22/2023 11:56:48 11/21/1911/22/2023 BUPRE NORPH INE PT UDS, QL, U amphetamines NEG NG/mL <500 normal Not Available [facility] [address] [place], [address], 11/22/2023 11:56:48 11/21/19 24 11/22/2023 BUPRE NORPH INE PT UDS, QL, U benzodiazepi tez NEG NG/mL <200 normal Not Available [facility] [address] [place], [address], 11/22/2023 11:56:48 11/21/19 24 11/22/2023 BUPRE NORPH INE PT UDS, QL, U buprenorphin e POS NG/mL <5 normal Not Available [facility] [address] [place], [address], 11/22/2023 11:56:48 11/21/19 24 11/22/2023 [facility] NORPH INE PT UDS, QL, U fentanyl NEG NG/mL <10 normal Not Available [facility] [address] [place], [address], 11/22/2023 11:56:48 11/21/19 24 11/22/2023 BUPRE NORPH INE PT UDS, QL, U methadone NEG NG/mL <300 normal Not Available [facility] [address] [place], [address], 11/22/2023 11:56:48 11/21/19 24 11/22/2023 BUPRE NORPH INE PT UDS, QL, U opiates NEG NG/mL <300 normal Not Available [facility] [address] [place], [address], 11/22/2023 11:56:48 11/21/19 24 11/22/2023 BUPRE NORPH INE PT UDS, QL, U oxycodone NEG NG/mL <300 normal Not Available [facility] [address] [place], [address], 11/22/2023 11:56:48 11/21/19 24 11/22/2023 BUPRE NORPH INE PT UDS, QL, U urine pH 9.0 4.5 - 9.0 Not Available [facility] [address] [place], [address], 11/22/2023 11:56:48 11/21/19 24 11/22/2023 BUPRE NORPH INE PT UDS, QL, U urine specific gravity 1.012 1.003 - 1.035 Not Available [facility] [address] [place], [address], 11/22/2023 11:56:48 11/21/1911/22/2023 BUPRE NORPH INE PT UDS, QL, U urine creatinine 94 mg/dL 20 - 320 Not Available [facility] [address] [place], [address], 11/22/2023 11:56:48 11/21/1911/22/2023 JEAN OL, QL, U ethanol NEG mg/dL <10 normal Not Available [facility] [address] [place], [address], 11/22/2023 11:56:49 12/19/19 24 12/20/2023 JEAN OL, QL, U ethanol NEG mg/dL <10 normal Not Available [facility] [address] [place], [address], 12/20/2023 11:48:23 12/19/19 24 12/20/2023 BUPRE NORPH INE PT UDS, QL, U cocaine metabolite NEG NG/mL <300 normal Not Available [facility] [address] [place], [address], 12/20/2023 11:48:24 12/19/19 24 12/20/2023 BUPRE NORPH INE PT UDS, QL, U amphetamines NEG NG/mL <500 normal Not Available [facility] [address] [place], [address], 12/20/2023 11:48:24 12/19/19 24 12/20/2023 [facility] PT UDS, QL, U benzodiazepi tez NEG NG/mL <200 normal Not Available [facility] [address] [place], [address], 12/20/2023 11:48:24 12/19/1912/20/2023 [facility] PT UDS, QL, U buprenorphin e POS NG/mL <5 normal Not Available [facility] [address] [place], [address], 12/20/2023 11:48:24 12/19/1912/20/2023 [facility]RE NORPH INE PT UDS, QL, U fentanyl NEG NG/mL <10 normal Not Available [facility] [address] [place], [address], 12/20/2023 11:48:24 12/19/19 24 12/20/2023 BUPRE NORPH INE PT UDS, QL, U methadone NEG NG/mL <300 normal Not Available [facility] [address] [place], [address], 12/20/2023 11:48:24 12/19/19 24 12/20/2023 BUPRE NORPH INE PT UDS, QL, U opiates NEG NG/mL <300 normal Not Available [facility] [address] [place], [address], 12/20/2023 11:48:24 12/19/19 24 12/20/2023 BUPRE NORPH INE PT UDS, QL, U oxycodone NEG NG/mL <300 normal Not Available [facility] [address] [place], [address], 12/20/2023 11:48:24 12/19/19 24 12/20/2023 BUPRE NORPH INE PT UDS, QL, U urine pH 8.0 4.5 - 9.0 Not Available [facility] [address] [place], [address], 12/20/2023 11:48:24 12/19/19 24 12/20/2023 BUPRE NORPH INE PT UDS, QL, U urine specific gravity 1.022 1.003 - 1.035 Not Available [facility] [address] [place], [address], 12/20/2023 11:48:24 12/19/1912/20/2023 BUPRE NORPH INE PT UDS, QL, U urine creatinine 136 mg/dL 20 - 320 Not Available [facility] [address] [place], [address], 12/20/2023 11:48:24 01/13/20 24 01/15/2024 JEAN OL, QL, U ethanol NEG mg/dL <10 normal Not Available [facility] [address] [place], [address], 01/15/2024 15:09:08 01/13/20 24 01/15/2024 CANNA BINOI DS, QL, U cannabinoids POS NG/mL <50 abnormal Not Available [facility] [address] [place], [address], 01/15/2024 15:09:09 01/13/20 24 01/15/2024 BUPRE NORPH INE PT UDS, QL, U cocaine metabolite NEG NG/mL <300 normal Not Available [facility] [address] [place], [address], 01/15/2024 15:09:11 01/13/20 24 01/15/2024 BUPRE NORPH INE PT UDS, QL, U amphetamines NEG NG/mL <500 normal Not Available [facility] [address] [place], [address], 01/15/2024 15:09:11 01/13/20 24 01/15/2024 BUPRE NORPH INE PT UDS, QL, U benzodiazepi tez NEG NG/mL <200 normal Not Available [facility] [address] [place], [address], 01/15/2024 15:09:11 01/13/20 24 01/15/2024 BUPRE NORPH INE PT UDS, QL, U buprenorphin e POS NG/mL <5 normal Not Available [facility] [address] [place], [address], 01/15/2024 15:09:11 01/13/20 24 01/15/2024 BUPRE NORPH INE PT UDS, QL, U fentanyl NEG NG/mL <10 normal Not Available [facility] [address] [place], [address], 01/15/2024 15:09:11 01/13/20 24 01/15/2024 BUPRE NORPH INE PT UDS, QL, U methadone NEG NG/mL <300 normal Not Available [facility] [address] [place], [address], 01/15/2024 15:09:11 01/13/20 24 01/15/2024 BUPRE NORPH INE PT UDS, QL, U opiates NEG NG/mL <300 normal Not Available [facility] [facility] [address] [place], [address], 01/15/2024 15:09:11 01/13/20 24 01/15/2024 BUPRE NORPH INE PT UDS, QL, U oxycodone NEG NG/mL <300 normal Not Available [facility] [address] [place], [address], 01/15/2024 15:09:11 01/13/20 24 01/15/2024 BUPRE NORPH INE PT UDS, QL, U urine pH 8.5 4.5 - 9.0 Not Available [facility] [address] [place], [address], 01/15/2024 15:09:11 01/13/20 24 01/15/2024 BUPRE NORPH INE PT UDS, QL, U urine specific gravity 1.018 1.003 - 1.035 Not Available [facility] [address] [place], [address], 01/15/2024 15:09:11 01/13/20 24 01/15/2024 BUPRE NORPH INE PT UDS, QL, U urine creatinine 148 mg/dL 20 - 320 Not Available [facility] [address] [place], [address], 01/15/2024 15:09:11 01/13/20 24 01/21/2024 BUPRE NORPH INE, QN, U normalized buprenorphin e 73.4 NG/mL Not Available [facility] [address] [place], [address], 01/21/2024 07:17:03 01/13/20 24 01/21/2024 BUPRE NORPH INE, QN, U normalized norbuprenorp mark 100.9 NG/mL Not Available [facility] [address] [place], [address], 01/21/2024 07:17:03 01/13/20 24 01/21/2024 BUPRE NORPH INE, QN, U buprenorphin e 108.3 NG/mL <10.0 normal Not Available [facility] [address] [place], [address], 01/21/2024 07:17:03 01/13/20 24 01/21/2024 BUPRE NORPH INE, QN, U norbuprenorp mark 148.9 NG/mL <20.0 normal Not Available [facility] [address] [place], [address], 01/21/2024 07:17:03 02/10/20 24 02/17/2024 JEAN OL, QL, U ethanol NEG mg/dL <10 normal Not Available [facility] [address] [place], [address], 02/17/2024 14:03:15 02/10/20 24 02/17/2024 BUPRE NORPH INE PT UDS, QL, U cocaine metabolite NEG NG/mL <300 normal Not Available [facility] [address] [place], [address], 02/17/2024 14:04:15 02/10/20 24 02/17/2024 BUPRE NORPH INE PT UDS, QL, U amphetamines NEG NG/mL <500 normal Not Available [facility] [address] [place], [address], 02/17/2024 14:04:15 02/10/20 24 02/17/2024 BUPRE NORPH INE PT UDS, QL, U benzodiazepi tez NEG NG/mL <200 normal Not Available [facility] [address] [place], [address], 02/17/2024 14:04:15 02/10/20 24 02/17/2024 BUPRE NORPH INE PT UDS, QL, U buprenorphin e POS NG/mL <5 normal Not Available [facility] [address] [place], [address], 02/17/2024 14:04:15 02/10/20 24 02/17/2024 BUPRE NORPH INE PT UDS, QL, U fentanyl NEG NG/mL <10 normal Not Available [facility] [address] [place], [address], 02/17/2024 14:04:15 02/10/20 24 02/17/2024 BUPRE NORPH INE PT UDS, QL, U methadone NEG NG/mL <300 normal Not Available [facility] [address] [place], [address], 02/17/2024 14:04:15 02/10/20 24 02/17/2024 BUPRE NORPH INE PT UDS, QL, U opiates NEG NG/mL <300 normal Not Available [facility] [address] [place], [address], 02/17/2024 14:04:15 02/10/20 24 02/17/2024 BUPRE NORPH INE PT UDS, QL, U oxycodone NEG NG/mL <300 normal Not Available [facility] [address] [place], [address], 02/17/2024 14:04:15 02/10/20 24 02/17/2024 BUPRE NORPH INE PT UDS, QL, U urine pH 9.0 4.5 - 9.0 Not Available [facility] [address] [place], [address], 02/17/2024 14:04:15 02/10/20 24 02/17/2024 BUPRE NORPH INE PT UDS, QL, U urine specific gravity 1.009 1.003 - 1.035 Not Available [facility] [address] [place], [address], 02/17/2024 14:04:15 02/10/20 24 02/17/2024 BUPRE NORPH INE PT UDS, QL, U urine creatinine 52 mg/dL 20 - 320 Not Available [facility] [address] [place], [address], 02/17/2024 14:04:15 03/11/19 25 03/13/2024 BUPRE NORPH INE PT UDS, QL, U cocaine metabolite NEG NG/mL <300 normal Not Available [facility] [address] [place], [address], 03/13/2024 13:34:31 03/11/19 25 03/13/2024 BUPRE NORPH INE PT UDS, QL, U amphetamines NEG NG/mL <500 normal Not Available [facility] [address] [place], [address], 03/13/2024 13:34:31 03/11/19 25 03/13/2024 BUPRE NORPH INE PT UDS, QL, U benzodiazepi tez NEG NG/mL <200 normal Not Available [facility] [address] [place], [address], 03/13/2024 13:34:31 03/11/19 25 03/13/2024 BUPRE NORPH INE PT UDS, QL, U buprenorphin e POS NG/mL <5 normal Not Available [facility] [address] [place], [address], 03/13/2024 13:34:31 03/11/19 25 03/13/2024 BUPRE NORPH INE PT UDS, QL, U fentanyl NEG NG/mL <10 normal Not Available [facility] [address] [place], [address], 03/13/2024 13:34:31 03/11/19 25 03/13/2024 BUPRE NORPH INE PT UDS, QL, U methadone NEG NG/mL <300 normal Not Available [facility] [address] [place], [address], 03/13/2024 13:34:31 03/11/19 25 03/13/2024 BUPRE NORPH INE PT UDS, QL, U opiates NEG NG/mL <300 normal Not Available [facility] [address] [place], [address], 03/13/2024 13:34:31 03/11/19 25 03/13/2024 BUPRE NORPH INE PT UDS, QL, U oxycodone NEG NG/mL <300 normal Not Available [facility] [address] [place], [address], 03/13/2024 13:34:31 03/11/19 25 03/13/2024 BUPRE NORPH INE PT UDS, QL, U urine pH 8.1 4.5 - 9.0 Not Available [facility] [address] [place], [address], 03/13/2024 13:34:31 03/11/19 25 03/13/2024 BUPRE NORPH INE PT UDS, QL, U urine specific gravity 1.015 1.003 - 1.035 Not Available [facility] [address] [place], [address], 03/13/2024 13:34:31 03/11/19 25 03/13/2024 BUPRE NORPH INE PT UDS, QL, U urine creatinine 106 mg/dL 20 - 320 Not Available [facility] [address] [place], [address], 03/13/2024 13:34:31 03/11/19 25 03/13/2024 JEAN OL, QL, U ethanol NEG mg/dL <10 normal Not Available [facility] [address] [place], [address], 03/13/2024 13:34:45 04/21/19 25 04/21/2024 JEAN OL, QL, U ethanol NEG mg/dL <10 normal Not Available [facility] [address] [place], [address], 04/21/2024 14:04:22 04/21/19 25 04/21/2024 BUPRE NORPH INE PT UDS, QL, U cocaine metabolite NEG NG/mL <300 normal Not Available [facility] [address] [place], [address], 04/21/2024 14:04:24 04/21/19 25 04/21/2024 BUPRE NORPH INE PT UDS, QL, U amphetamines NEG NG/mL <500 normal Not Available [facility] [address] [place], [address], 04/21/2024 14:04:24 04/21/19 25 04/21/2024 BUPRE NORPH INE PT UDS, QL, U benzodiazepi tez NEG NG/mL <200 normal Not Available [facility] [address] [place], [address], 04/21/2024 14:04:24 04/21/19 25 04/21/2024 BUPRE NORPH INE PT UDS, QL, U buprenorphin e POS NG/mL <5 normal Not Available [facility] [address] [place], [address], 04/21/2024 14:04:24 04/21/19 25 04/21/2024 BUPRE NORPH INE PT UDS, QL, U fentanyl NEG NG/mL <10 normal Not Available [facility] [address] [place], [address], 04/21/2024 14:04:24 04/21/19 25 04/21/2024 BUPRE NORPH INE PT UDS, QL, U methadone NEG NG/mL <300 normal Not Available [facility] [address] [place], [address], 04/21/2024 14:04:24 04/21/19 25 04/21/2024 BUPRE NORPH INE PT UDS, QL, U opiates NEG NG/mL <300 normal Not Available [facility] [address] [place], [address], 04/21/2024 14:04:24 04/21/19 25 04/21/2024 BUPRE NORPH INE PT UDS, QL, U oxycodone NEG NG/mL <300 normal Not Available [facility] [address] [place], [address], 04/21/2024 14:04:24 04/21/19 25 04/21/2024 BUPRE NORPH INE PT UDS, QL, U urine pH 8.0 4.5 - 9.0 Not Available [facility] [address] [place], [address], 04/21/2024 14:04:24 04/21/19 25 04/21/2024 BUPRE NORPH INE PT UDS, QL, U urine specific gravity 1.012 1.003 - 1.035 Not Available [facility] [address] [place], [address], 04/21/2024 14:04:24 04/21/19 25 04/21/2024 BUPRE NORPH INE PT UDS, QL, U urine creatinine 97 mg/dL 20 - 320 Not Available [facility] [address] [place], [address], 04/21/2024 14:04:24 Result Notes None recorded. Problems Name Problem SNOMED Code Status Onset Date Resolution Date Notes Provider Name and Address Organization Details Recorded Time Opioid dependence 24224360 Active Mary Nguyen NP [address] [place] [address], [address], [facility] 3 13:18:52 Nicotine dependence 15124868 Active Mary Nguyen NP [address] [place] [address], [address], [facility] 3 13:19:04 Depressive disorder 25446224 Active Mary Nguyen NP [address] [place] [address], [address], [facility] 3 13:19:15 Anxiety 85605532 Active Mary Nguyen NP [address] [place] [address], [address], [facility] 3 13:19:20 Problem Notes None recorded. Procedures Surgical History Date Name Laterality Status Provider Name and Address Organization Details Recorded Time 04/20/2024 91405, G0480, G0481 completed Dulce Moreira [facility] 04/20/2024 15:52:52 03/11/2024 47306, G0480, G0481 completed Dulce Moreira [facility] 03/11/2024 16:44:56 02/10/2024 31109, G0480, G0481 completed Dulce Moreira [facility] 02/10/2024 16:46:25 01/13/2024 96401, G0480, G0481 completed Heydi Napier [facility] 01/13/2024 16:40:29 12/19/2023 90478, G0480, G0481 completed Ny Ventura [facility] 12/19/2023 16:28:32 11/21/2023 55126, G0480, G0481 [facility]23 15:51:34 10/17/2023 03425, G0480, G0481 [facility] 10/17/2023 16:49:41 09/18/2023 62216, G0480, G0481 [facility] 09/18/2023 16:10:03 08/15/2023 75413, G0480, G0481 [facility] 08/15/2023 10:50:46 07/18/2023 59406, G0480, G0481 completed Mary Nguyen,MANAGER TRAINING AND DEVELOPMENT [address] [place], [address], [facility] 07/18/2023 16:37:57 06/19/2023 30219, G0480, G0481 [facility] 06/19/2023 16:10:12 05/16/2023 72954, G0480, G0481 [facility] 05/16/2023 16:47:24 04/18/2023 15016, G0480, G0481 [facility] 04/18/2023 16:47:43 03/21/2023 53528, G0480, G0481 completed Mary NguyenMANAGER TRAINING AND DEVELOPMENT [address] [place], [address], [facility] 03/21/2023 16:47:58 02/14/2023 96331, G0480, G0481 [facility] 02/14/2023 16:23:10 01/17/2023 07105, G0480, G0481 completed [facility] 01/17/2023 16:46:18 12/13/2022 40784, G0480, G0481 [facility] 12/13/2022 16:46:05 11/08/2022 06886, G0480, G0481 [facility] 11/08/2022 16:35:53 10/11/2022 12637, G0480, G0481 [facility] 10/11/2022 16:34:54 09/27/2022 28076, G0480, G0481 completed Mary Philipa,MANAGER TRAINING AND DEVELOPMENT [address] [place], [address], [facility] 09/27/2022 11:49:43 09/13/2022 11054, G0480, G0481 [facility] 09/13/2022 16:16:39 08/30/2022 27446, G0480, G0481 completed Mary Philipa,MANAGER TRAINING AND DEVELOPMENT [address] [place], [address], [facility] 08/30/2022 14:30:47 08/16/2022 00556, G0480, G0481 completed Mary Skaza,MANAGER TRAINING AND DEVELOPMENT [address] [place], [address], [facility] 08/09/2022 08:59:08 07/26/2022 02267, G0480, G0481 completed Mary Philipa,MANAGER TRAINING AND DEVELOPMENT [address] [place] [address], [address], [facility] 07/26/2022 13:58:55 07/12/2022 64338, G0480, G0481 completed Mary Philipa,MANAGER TRAINING AND DEVELOPMENT [address] [place], [address], [facility] 07/12/2022 14:34:12 06/29/2022 32049, G0480, G0481 completed HARI Robbins [address] [place] [address], [address], [facility] 06/29/2022 14:36:36 06/13/2022 13424, G0480, G0481 completed Mary Nguyen NP [address] [place] [address], [address], [facility] 06/13/2022 11:24:06 05/30/2022 10482, G0480, G0481 completed Mary Nguyen NP [address] [place] [address], [address], [facility] 05/28/2022 14:44:57 05/24/2022 00515, G0480, G0481 completed Mary Nguyen NP [address] [place] [address], [address], [facility] 05/21/2022 15:26:18 05/10/2022 61536, G0480, G0481 completed Mary Nguyen NP [address] [place] [address], [address], [facility] 05/10/2022 13:16:58 05/03/2022 46723, G0480, G0481 completed Hansa Amaya PA-C [address] [place] [address], [address], [facility] 05/03/2022 16:26:52 Imaging Results None recorded. Procedure [...] t Available Vitals Date Recorded Body height Body temperature Oxygen saturation Oxygen saturation in Arterial blood by Pulse oximetry Heart rate Provider Name and Address Organization Details Last Updated DateTime 4 182.88 cm 97.5 [degF] 98 % 98 % 82 /min Ny Ventura [facility] 4 16:30:34 Date Recorded Body height Body temperature Oxygen saturation Oxygen saturation in Arterial blood by Pulse oximetry Heart rate Provider Name and Address Organization Details Last Updated DateTime 4 182.88 cm 97.5 [degF] 96 % 96 % 82 /min Heydi Napier [facility] 4 16:42:55 Date Recorded Body height Heart rate Oxygen saturation Oxygen saturation in Arterial blood by Pulse oximetry Body temperature Provider Name and Address Organization Details Last Updated DateTime 4 182.88 cm 94 /min 97 % 97 % 97.7 [degF] Dulce [facility] 4 16:48:15 Date Recorded Body height Heart rate Oxygen saturation Oxygen saturation in Arterial blood by Pulse oximetry Body temperature Provider Name and Address Organization Details Last Updated DateTime 5 182.88 cm 93 /min 91 % 91 % 98 [degF] Dulce [facility] 5 16:46:54 Date Recorded Body height Heart rate Oxygen saturation Oxygen saturation in Arterial blood by Pulse oximetry Body temperature Provider Name and Address Organization Details Last Updated DateTime 5 182.88 cm 81 /min 98 % 98 % 96.9 [degF] Dulce [facility] 5 15:56:36 Social History Question Answer Notes LastModified by Organizat ion Details LastModified Time *Housing Stable - Safe [email or web address] Information not available 05/03/2022 *Employment Employed [email or web address] Information n ot available 05/03/2022 *Food Adequate [email or web address] Information no t available 05/03/2022 * Not A [place] Information not available 05/03/2022 *Job Training/Educa tion/Literacy Not Needed [email or web address] Information not available 05/03/2022 *Legal Status No Legal Issues [email or web address] Information not available 05/03/2022 *Legal Assistance Not Required Information not available 05/03/2022 *Custody Of Dependent Children N/A [email or web address] Information not available 05/03/2022 *Social Service's Involvement With Dependent Children Not Applicable [email or web address] Information not available 05/03/2022 *Childcare Needed No Information not available 05/03/2022 *Concern For Domestic Violence No [email or web address] Information not available 05/03/2022 *Primary Care Provider Yes [place] [email or web address] Information not available 05/03/2022 *Other Medical Issues None [email or web address] Information not available 05/03/2022 *Social Support Network Has Stable Support System [email or web address] Information not available 05/03/2022 *Transportatio n Issues No [email or web address] Information not available 05/03/2022 Sex: Unknown Functional Status None recorded. Mental Status None recorded. Family History Nothing Reported Notes:DENIES ANY FAMILY HX O UD/AUD Medical History No medical history recorded. Past Encounters Encounter ID Performer Location Encounter Start Date Encounter Closed Date Diagnosis/Indication Diagnosis SNOMED-CT Code Diagnosis ICD10 Code Diagnosis Note [id number] Hansa Amaya PA-C [facility] [address] [place] [address] 05/03/2022 17:31:38 05/03/2022 18:28:30 Opioid dependence 49661489 F11.20 Stable [id number] [facility] [address] [place] [address] 05/10/2022 15:44:59 05/10/2022 16:30:36 Opioid dependence 84862571 F11.20 STABLE [id number] Mary Nguyen NP [facility] [address] [place] [address] 05/24/2022 14:06:55 05/29/2022 20:38:51 Opioid dependence 34580221 F11.20 STABLE [id number] Mary Singhsushiladebbie,MANAGER TRAINING AND DEVELOPMENT [facility] [address] [place] [address] 05/30/2022 16:41:25 06/01/2022 17:08:39 Opioid dependence 97690879 F11.20 STABLE [id number] Mary Nguyen,MANAGER TRAINING AND DEVELOPMENT [facility] [address] [place] [address] 06/13/2022 16:34:28 06/13/2022 16:57:59 Opioid dependence 76656898 F11.20 STABLE [id number] Ran Jackson, MANAGER TRAINING AND DEVELOPMENT [facility] [address] [place] [address], [place] [address] 06/29/2022 16:28:22 07/01/2022 13:07:57 Opioid dependence 99720791 F11.20 stable [id number] Mary Wendy,MANAGER TRAINING AND DEVELOPMENT [facility] [address] [place] [address], [place] [address] 07/12/2022 16:44:19 07/17/2022 18:53:20 Opioid dependence 02193492 F11.20 STABLE [id number] Mary Wendy,MANAGER TRAINING AND DEVELOPMENT [facility] [address] [place] [address], [place] [address] 07/26/2022 16:41:57 08/01/2022 14:05:40 Opioid dependence 05027666 F11.20 STABLE [id number] Mary Singhsushiladebbie,MANAGER TRAINING AND DEVELOPMENT [facility] [address] [place] [address], [place] [address] 08/16/2022 15:52:26 08/16/2022 16:19:44 Opioid dependence 68556105 F11.20 STABLE [id number] Mary Philipa,MANAGER TRAINING AND DEVELOPMENT [facility] [address] [place] [address] 08/30/2022 16:15:34 08/30/2022 16:38:03 Opioid dependence 35607243 F11.20 STABLE [id number] Mary Philipa,MANAGER TRAINING AND DEVELOPMENT [facility] [address] [place] [address] 09/13/2022 16:14:19 09/13/2022 16:35:05 Opioid dependence 09171991 F11.20 STABLE [id number] Mary Singhsushilaa,MANAGER TRAINING AND DEVELOPMENT [facility] [address] [place] [address] 09/27/2022 11:48:57 09/27/2022 12:10:49 Opioid dependence 27326743 F11.20 STABLE [id number] Mary Singhsushilaa,MANAGER TRAINING AND DEVELOPMENT [facility] [address] [place] [address] 10/11/2022 16:32:31 10/11/2022 17:02:26 Opioid dependence 54621890 F11.20 STABLE [id number] Mary Wendy,MANAGER TRAINING AND DEVELOPMENT [facility] [address] [place] [address] 11/08/2022 16:33:42 11/08/2022 16:51:00 Opioid dependence 34961643 F11.20 STABLE [id number] Mary Skaza,MANAGER TRAINING AND DEVELOPMENT [facility] [address] [place] [address] 12/13/2022 16:43:12 12/13/2022 17:00:54 Opioid dependence 98297775 F11.20 STABLE [id number] Mary Skaza,MANAGER TRAINING AND DEVELOPMENT [facility] [address] [place] [address] 01/17/2023 16:42:57 01/17/2023 17:27:30 Opioid dependence 98256687 F11.20 STABLE [id number] Maryritchie Nguyen,MANAGER TRAINING AND DEVELOPMENT [facility] [address] [place] [address] 02/14/2023 16:20:28 02/14/2023 16:53:59 Opioid dependence 35765697 F11.20 STABLE [id number] Maryritchie Nguyen,MANAGER TRAINING AND DEVELOPMENT [facility] [address] [place] [address] 03/21/2023 16:47:19 03/26/2023 08:55:55 Opioid dependence 07799018 F11.20 STABLE [id number] Mary Nguyen,MANAGER TRAINING AND DEVELOPMENT [facility] [address] [place] [address] 04/18/2023 16:45:09 04/18/2023 17:32:47 Opioid dependence 59254543 F11.20 STABLE [id number] Mary Nguyen,MANAGER TRAINING AND DEVELOPMENT [facility] [address] [place] [address] 05/16/2023 16:45:20 05/16/2023 17:03:35 Opioid dependence 63265785 F11.20 STABLE [id number] Mary Nguyen,MANAGER TRAINING AND DEVELOPMENT [facility] [address] [place] [address] 06/19/2023 16:08:37 06/19/2023 16:44:24 Opioid dependence 70146130 F11.20 STABLE [id number] Mary Nguyen,MANAGER TRAINING AND DEVELOPMENT [facility] [address] [place] [address] 07/18/2023 16:38:27 07/18/2023 16:53:29 Opioid dependence 86447770 F11.20 STABLE [id number] Mary Nguyen,MANAGER TRAINING AND DEVELOPMENT [facility] [address] [place] [address] 08/15/2023 10:45:45 08/15/2023 11:10:07 Opioid dependence 78334309 F11.20 STABLE [id number] Mary Ngueyn,MANAGER TRAINING AND DEVELOPMENT [facility] [address] [place] [address] 09/18/2023 16:08:30 09/18/2023 16:24:42 Opioid dependence 98155410 F11.20 STABLE [id number] Mary Nguyen,MANAGER TRAINING AND DEVELOPMENT [facility] [address] [place] [address] 10/17/2023 16:45:52 10/17/2023 17:07:32 Opioid dependence 03495717 F11.20 STABLE [id number] Mary Nguyen,MANAGER TRAINING AND DEVELOPMENT [facility] [place] [address] 11/21/2023 15:46:43 11/21/2023 16:08:43 Opioid dependence 13126945 F11.20 STABLE [id number] Mary Nguyen,MANAGER TRAINING AND DEVELOPMENT [facility] [place] [address] 12/19/2023 16:25:54 12/19/2023 16:45:14 Opioid dependence 29332928 F11.20 STABLE [id number] Gwen Hensley, MANAGER TRAINING AND DEVELOPMENT [facility] [address] [place] [address] 01/13/2024 16:39:13 01/14/2024 15:06:07 Opioid dependence 29334408 F11.20 STABLE [id number] Mary Nguyen,MANAGER TRAINING AND DEVELOPMENT [facility] [place] [address] 02/10/2024 16:45:02 02/13/2024 18:27:09 Opioid dependence 62135900 F11.20 STABLE [id number] Mary Nguyen,MANAGER TRAINING AND DEVELOPMENT [facility] [address] [place] [address] 03/11/2024 16:42:40 03/12/2024 16:08:19 Opioid dependence 74198546 F11.20 STABLE [id number] Mary Nguyen,MANAGER TRAINING AND DEVELOPMENT [facility] [address] 04/20/2024 15:50:35 04/20/2024 16:09:35 Opioid dependence 58039697 F11.20 STABLE Health Concerns Section Related Observation LastModified by Organization Detai ls LastModified Time None Recorded Concern Status LastModified by Organization Details LastModified Time None Recorded Advance Directives Directive None Recorded Payers Encounter Date Sequence Insurance Name Policy Number Policy Whitlock Covered Member ID Whitlock Member ID Guarantor Name 12/19/2023 1 [place] [id number] Alvarado J Moreno [id number] Alvarado Moreno 01/13/2024 1 [place] [id number] Alvarado J Moreno [id number] Alvarado Moreno 02/10/2024 1 [place] [id number] Alvarado J Morneo [id number] Alvarado Moreno 03/11/2024 1 [place] [id number] Alvarado J Moreno [id number] Alvarado Moreno 04/20/2024 1 [place] [id number] Alvarado J Moreno [id number] Alvarado Moreno Notes Date Note Type Note Provider Name and Address Organization Details Recorded Time 12/19/2023 text/html This patient is here today for their follow-up MAT visit. They are being treated for OUD with buprenorphine. PLEASE SEE A & P SECTION FOR FULL VISIT NOTE Mary Nguyen NP [address] [place], [address], [facility] 12/19/2023 16:41:21 01/13/2024 text/html This patient is here today for their follow-up MAT visit. They are being treated for OUD with buprenorphine. PLEASE SEE A & P SECTION FOR FULL VISIT NOTE Gwen Hensley NP [address] [place], [address], [facility] [employer] [facility] 01/13/2024 16:57:38 02/10/2024 text/html This patient is here today for their follow-up MAT visit. They are being treated for OUD with buprenorphine. PLEASE SEE A & P SECTION FOR FULL VISIT NOTE Mary Nguyen NP [address] [place], [address], [facility] [employer] [facility] 02/10/2024 17:00:59 03/11/2024 text/html This patient is here today for their follow-up MAT visit. They are being treated for OUD with buprenorphine. PLEASE SEE A & P SECTION FOR FULL VISIT NOTE Mary Nguyen NP [address] [place], [id number], [facility] [employer] 03/11/2024 17:03:58 04/20/2024 text/html This patient is here today for their follow-up MAT visit. They are being treated for OUD with buprenorphine. PLEASE SEE A & P SECTION FOR FULL VISIT NOTE Mary Nguyen NP [address] [place], [phone], [facility] [employer] 04/20/2024 16:03:51
[2024-04-23 19:58] VITALS: BP 173/83; PULSE 70; RESP 22; TEMP 36.6; O2SAT 97
== END 2024-04-23 20:01 | disposition home or self-care (01) ==
PROVIDERS: Physician Assistant Medical; Emergency Provider Emergency Medicine; PCP Family Medicine
DX: R03.0 Elevated blood-pressure reading, without diagnosis of hypertension (principal); I10 Essential (primary) hypertension; Z79.899 Other long term (current) drug therapy
CPT/HCPCS: 36415; 80048; 80076; 85025; 99282; 99283

== ENCOUNTER 2025-01-07 10:17 | Emergency (ER) | payer OTHER, SELFPAY ==
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
[2025-01-07 10:22] VITALS: BP 185/88; PULSE 67; RESP 20; TEMP 36.5; O2SAT 96; BMI 63.1
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
[2025-01-07 13:46] LABS: MANUAL DIFF FLAG NO
[2025-01-07 13:55] LABS: Hematocrit 43.1 % (42.0-52.0); Hemoglobin 14.6 g/dl (14.0-18.0); Imm Gran Abs Auto 0.03 X10*3/uL (0.00-0.03); Imm Gran Pct Auto 0.4 % (0.0-0.4); Lymphocytes Absolute Auto 2.1 X10*3/uL (1.2-4.9); Mean Corpuscular HGB Conc 33.9 g/dl (31.0-36.0); Mean Corpuscular Hemoglobin 29.6 pg (27.0-33.0); Mean Corpuscular Volume 87.4 fL (80.0-98.0); NRBC Abs Auto 0.000 X10*3/uL (0.0-0.012); NRBC Pct Auto 0.0 /100WBC (0.0-0.2); Platelet Count 273 X10*3/uL (160-400); Red Blood Count 4.93 X10*6/uL (4.60-5.80); White Blood Count 7.8 X10*3/uL (4.8-10.8)
[2025-01-07 14:04] LABS: Alanine Aminotransferase 28 U/L (0-40); Albumin Level 4.5 g/dL (3.5-5.0); Alkaline Phosphatase 81 U/L (39-117); Anion Gap 9 (12-20); Aspartate Amino Transferase 21 U/L (5-37); Blood Urea Nitrogen 14 mg/dL (9-16); Calcium 8.8 mg/dL (8.4-10.2); Carbon Dioxide 28 mmol/L (22-29); Chloride 108 mmol/L (96-108); Creatinine Clr Calc Pharmacy 216.6; Estimated Glomerular Filt Rate > 60; Potassium 3.8 mmol/L (3.3-5.1); Sodium 141 mmol/L (135-145); Total Protein 7.4 g/dL (6.5-8.0)
[2025-01-07 15:20] VITALS: BP 178/87; PULSE 58; RESP 16; TEMP 36.7; O2SAT 98
[2025-01-07] MEDS: iohexoL 350 MG/ML 100 ML INFUS..BTL IV (15:58)
[2025-01-07 16:42] VITALS: BP 176/89; PULSE 54; RESP 16; TEMP 36.8; O2SAT 99
[2025-01-07 17:18] VITALS: BP 176/89; PULSE 54; RESP 16; TEMP 36.8; O2SAT 99
--- NOTE | 2025-01-07 17:29 | MHC.EDTECH ---
Unable to give crutches due to weight restriction and patient being over 300 lbs
== END 2025-01-07 17:51 | disposition home or self-care (01) ==
PROVIDERS: Physician Assistant Medical; Emergency Provider Emergency Medicine; PCP Family Medicine
DX: S13.4XXA Sprain of ligaments of cervical spine, initial encounter (principal); S29.012A Strain of muscle and tendon of back wall of thorax, initial encounter; S39.012A Strain of muscle, fascia and tendon of lower back, initial encounter; V43.52XA Car driver injured in collision with other type car in traffic accident, initial encounter; Y93.9 Activity, unspecified; Y92.410 Unspecified street and highway as the place of occurrence of the external cause; Y99.9 Unspecified external cause status; M54.2 Cervicalgia; M25.571 Pain in right ankle and joints of right foot; M25.511 Pain in right shoulder; R10.12 Left upper quadrant pain
CPT/HCPCS: 36415; 70450; 71260; 72100; 72125; 73030; 73610; 73630; 74177; 80053; 85025; 99284; 99285; Q9967

== ENCOUNTER → 2025-01-07 10:27 | Outpatient (BNV) | payer BC, SELFPAY | PROVIDERS: Emergency Provider Emergency Medicine; PCP Family Medicine; Visit Provider Radiology Diagnostic Radiology | DX: R10.12 Left upper quadrant pain (principal); K42.9 Umbilical hernia without obstruction or gangrene; M47.814 Spondylosis without myelopathy or radiculopathy, thoracic region; M54.2 Cervicalgia; M47.812 Spondylosis without myelopathy or radiculopathy, cervical region; R51.9 Headache, unspecified; M54.50 Low back pain, unspecified; M47.816 Spondylosis without myelopathy or radiculopathy, lumbar region; M25.511 Pain in right shoulder; M19.011 Primary osteoarthritis, right shoulder; M79.89 Other specified soft tissue disorders; M77.31 Calcaneal spur, right foot; V89.2XXA Person injured in unspecified motor-vehicle accident, traffic, initial encounter | CPT/HCPCS: 70450; 71260; 72100; 72125; 73030; 73610; 73630; 74177 ==